=== PATIENT | female | born 1975 | race Caucasian/White ===

== ENCOUNTER → 2016-06-30 | Outpatient (CLI) | payer OTHER | LOC: HEART CORB 15:39 | DX: R00.2 Palpitations (principal) ==

== ENCOUNTER → 2021-04-18 | Outpatient (CLI) | payer OTHER | LOC: HEART CORB 08:22 | DX: Q24.5 Malformation of coronary vessels (principal); R06.00 Dyspnea, unspecified; R07.2 Precordial pain | CPT/HCPCS: 78452; A9502; J2785 ==

== ENCOUNTER → 2021-05-16 | Outpatient (CLI) | payer OTHER ==
[2021-05-16 12:45] LABS: HEMOGLOBIN 13.3 gm/dl (12.3-15.3); RED BLOOD COUNT 4.71 M/UL (4.00-5.10); WHITE BLOOD COUNT 7.1 K/UL (4.5-11.0)
== END ==
LOC: LAB 12:09
PROVIDERS: Internal Medicine Interventional Cardiology
DX: R07.89 Other chest pain (principal); R94.39 Abnormal result of other cardiovascular function study; I20.9 Angina pectoris, unspecified; I10 Essential (primary) hypertension; R06.00 Dyspnea, unspecified; K21.9 Gastro-esophageal reflux disease without esophagitis; E78.5 Hyperlipidemia, unspecified; I34.0 Nonrheumatic mitral (valve) insufficiency; Q24.5 Malformation of coronary vessels; E11.9 Type 2 diabetes mellitus without complications; I07.1 Rheumatic tricuspid insufficiency
CPT/HCPCS: 36415; 80048; 85025; 85610; 85730; 93005

== ENCOUNTER 2021-05-28 06:05 | Outpatient (CLI) | payer OTHER ==
[~2021-05-28] VITALS: Ht 157.5 cm; Wt 61.2 kg
[2021-05-28] MEDS ORDERED: NORVASC5 MG PO (06:54)
[2021-05-28] MEDS ORDERED: ASPIRIN EC81 MG PO (06:57)
[2021-05-28] MEDS ORDERED: HYDROCODONE-AC1 EACH PO (07:01)
[2021-05-28] MEDS ORDERED: DITROPAN 5 MG TA5 MG PO (07:02)
[2021-05-28] MEDS ORDERED: CLARITIN10 M2 PO (07:03)
[2021-05-28] MEDS ORDERED: ISORDIL TAB 3030 MG PO (07:03)
[2021-05-28] MEDS ORDERED: LEVEMIR100 UNIT/1 SQ ×2 (07:05→15:47)
[2021-05-28] MEDS ORDERED: CELEXA40 MG PO (07:06)
[2021-05-28] MEDS ORDERED: PREVACID 30 MG30 MG PO (07:11)
[2021-05-28] MEDS ORDERED: COLACE100 MG PO (07:12)
[2021-05-28] MEDS ORDERED: VITAMIN D21250 MCG PO (07:12)
[2021-05-28] MEDS ORDERED: ADVAIR 250-501 EACH INH (07:13)
[2021-05-28] MEDS ORDERED: ALBUTEROL2.5 MG/3 M INH (07:13)
[2021-05-28] MEDS ORDERED: VISTARIL 25 MG25 MG PO (07:14)
[2021-05-28] MEDS ORDERED: HUMALOG100 UNIT/1 SQ (07:15)
[2021-05-28] MEDS ORDERED: BUSPIRONE HCL5 MG PO (07:15)
[2021-05-28] MEDS ORDERED: LIPITOR80 MG PO (07:16)
[2021-05-28] MEDS ORDERED: ESTRACE1 MG PO (07:17)
[2021-05-28] MEDS ORDERED: METFORMIN HCL500 M2 PO (07:17)
[2021-05-28] MEDS ORDERED: NAPROSYN EC 50500 MG PO (07:18)
[2021-05-28] MEDS ORDERED: TOPROL XL25 MG PO (07:20)
[2021-05-28] MEDS ORDERED: NITROGLYCERIN0.4 MG SL (15:50)
[2021-05-28] MEDS ORDERED: ROPINIROLE HCL3 MG PO (15:50)
[2021-05-28] MEDS ORDERED: CYCLOBENZAPRINE10 MG PO (15:50)
[2021-05-28] MEDS ORDERED: PROAIR HFA8.5 GM INH (15:51)
[2021-05-28] MEDS ORDERED: TIZANIDINE HCL4 MG PO (15:52)
[2021-05-28 18:36] LABS: HEMOGLOBIN 11.1 gm/dl (12.3-15.3); RED BLOOD COUNT 4.01 M/UL (4.00-5.10); WHITE BLOOD COUNT 3.9 K/UL (4.5-11.0)
[2021-05-29 06:38] LABS: RED BLOOD COUNT 3.99 M/UL (4.00-5.10); WHITE BLOOD COUNT 3.4 K/UL (4.5-11.0)
[2021-05-29 07:04] LABS: BUN/CREATININE RATIO 11 (0-10)
[2021-05-29] MEDS ORDERED: BRILINTA90 MG PO (09:48)
[2021-05-29] MEDS ORDERED: ISOSORBIDE MONO60 MG PO (09:49)
[2021-05-29] MEDS ORDERED: PROTONIX40 MG PO (09:49)
== END 2021-05-29 09:59 | disposition home or self-care (01) ==
LOC: CATH 06:05 → PROG CARE 12:13 → CATH 05-29 09:59
PROVIDERS: Internal Medicine Interventional Cardiology
DX: I25.118 Atherosclerotic heart disease of native coronary artery with other forms of angina pectoris (principal); I25.84 Coronary atherosclerosis due to calcified coronary lesion; I10 Essential (primary) hypertension; E11.9 Type 2 diabetes mellitus without complications; I07.1 Rheumatic tricuspid insufficiency; Q24.5 Malformation of coronary vessels; F17.200 Nicotine dependence, unspecified, uncomplicated
CPT/HCPCS: 36415; 80048; 82550; 82553; 82962; 84484; 85027; 85347; 93005; 94640; 94664; 94760; 99152; 99153; C1725; C1769; C1874; C1887; C9600; J0461; J1644; J2250; J3010; J3246; J7030; Q0177; Q9965